=== PATIENT | male | born 1960 | race Caucasian/White ===

== ENCOUNTER 2020-03-21 02:15 | Emergency (ER) | payer BC, OTHER ==
[2020-03-21] MEDS ORDERED: Aspirin 81 MG Tab.Chew PO ONE (02:39)
--- NOTE | 2020-03-21 02:41 | EDM.PDOC ---
ED HPI GENERAL MEDICAL PROBLEM - General Stated Complaint: CHEST PAIN Time Seen by Provider: 03/21/20 02:20 Source of Information: Reports: Patient History Limitations: Reports: No Limitations - History of Present Illness INITIAL COMMENTS - FREE TEXT/NARRATIVE: Patient presented to the ED because of chest pain over the sternal area,06/09, with associated dyspnea and the pain is more of pleuritic type-worse with brathing and movements. There is no associated N/V, no fever or chills. chest Pain Score (Numeric/FACES): 4 headache Pain Score (Numeric/FACES): 3 - Related Data Allergies Allergy/AdvReac Type Severity Reaction Status Date / Time No Known Allergies Allergy Verified 03/21/20 02:39 Home Meds: Home Meds Levothyroxine 200 mcg PO DAILY 03/21/20 [History] traZODone HCl [Trazodone HCl] 50 mg PO DAILY 03/21/20 [History] Past Medical History Psychiatric History: Reports: Other (See Below) (insomnia) Endocrine/Metabolic History: Reports: Hypothyroidism ED ROS GENERAL - Review of Systems Review Of Systems: See Below Constitutional: Reports: No Symptoms HEENT: Reports: No Symptoms Respiratory: Reports: No Symptoms Cardiovascular: Reports: Chest Pain Endocrine: Reports: No Symptoms GI/Abdominal: Reports: No Symptoms Musculoskeletal: Reports: No Symptoms Skin: Reports: No Symptoms Neurological: Reports: No Symptoms ED EXAM, GENERAL - Physical Exam Exam: See Below Exam Limited By: No Limitations General Appearance: Alert, No Apparent Distress Ears: Normal External Exam, Normal Canal Nose: Normal Inspection, Normal Mucosa Throat/Mouth: Normal Inspection, Normal Lips Head: Atraumatic, Normocephalic Neck: Normal Inspection, Supple Respiratory/Chest: No Respiratory Distress Cardiovascular: Normal Peripheral Pulses, Regular Rate, Rhythm GI/Abdominal: Normal Bowel Sounds, Soft, Non-Tender Extremities: Normal Inspection, Normal Range of Motion Neurological: Alert, Oriented, CN II-XII Intact, Normal Cognition Course - Vital Signs Text/Narrative:: labs/EKG was discussed with patient and verbalized full understanding EKG-NSR,non specfic T abd trop neg ASA 324 mg po x1 Last Recorded V/S: Last Vital Signs Temp 36.6 C 03/21/20 02:15 Pulse 67 03/21/20 04:07 Resp 16 03/21/20 04:07 BP 109/64 03/21/20 04:07 Pulse Ox 98 03/21/20 04:07 - Orders/Labs/Meds Labs: Laboratory Tests 03/21/20 03/21/20 03/21/20 Range/Units 02:45 02:45 02:45 WBC 8.0 (4.5-12.0) X10-3/uL RBC 5.02 (4.30-5.75) x10(6)uL Hgb 15.0 (13.5-17.8) g/dL Hct 45.7 (30.0-51.3) % MCV 91.2 (80-96) fL MCH 29.8 (27.7-33.6) pg MCHC 32.7 (32.2-35.4) g/dL RDW 13.1 (11.5-15.5) % Plt Count 203 (125-369) X10(3)uL MPV 7.3 L (7.4-10.4) fL Neut % (Auto) 68.6 (46-82) % Lymph % (Auto) 18.9 (13-37) % Jennings % (Auto) 9.4 (4-12) % Eos % (Auto) 3 (1.0-5.0) % Baso % (Auto) 1 (0-2) % Neut # (Auto) 5.5 (1.6-8.3) # Lymph # (Auto) 1.5 (0.6-5.0) # Jennings # (Auto) 0.7 (0.0-1.3) # Eos # (Auto) 0.2 (0.0-0.8) # Baso # (Auto) 0.0 (0.0-0.2) # PT 10.6 (9.0-11.1) sec INR 0.98 L (1.00-1.24) APTT 25.2 (24.4-33.2) SECONDS Sodium 142 (135-145) mmol/L Potassium 3.6 (3.5-5.3) mmol/L Chloride 104 (100-110) mmol/L Carbon Dioxide 28 (21-32) mmol/L BUN 22 H (7-18) mg/dL Creatinine 1.2 (0.70-1.30) mg/dL Est Cr Clr Drug Dosing TNP Estimated GFR (MDRD) > 60 (>60) BUN/Creatinine Ratio 18.3 (9-20) Glucose 104 (80-116) mg/dL Calcium 8.7 (8.6-10.2) mg/dL Total Bilirubin 0.5 (0.1-1.3) mg/dL AST 15 (5-25) IU/L ALT 20 (12-36) U/L Alkaline Phosphatase 86 (56-112) IU/L Troponin I (4.0-60.3) pg/mL NT-Pro-B Natriuret Pep (<=125) pg/mL Total Protein 7.1 (6.0-8.0) g/dL Albumin 3.6 (3.5-5.2) g/dL Globulin 3.5 g/dL Albumin/Globulin Ratio 1.0 04//20 Range/Units 02:45 WBC (4.5-12.0) X10-3/uL RBC (4.30-5.75) x10(6)uL Hgb (13.5-17.8) g/dL Hct (30.0-51.3) % MCV (80-96) fL MCH (27.7-33.6) pg MCHC (32.2-35.4) g/dL RDW (11.5-15.5) % Plt Count (125-369) X10(3)uL MPV (7.4-10.4) fL Neut % (Auto) (46-82) % Lymph % (Auto) (13-37) % Jennings % (Auto) (4-12) % Eos % (Auto) (1.0-5.0) % Baso % (Auto) (0-2) % Neut # (Auto) (1.6-8.3) # Lymph # (Auto) (0.6-5.0) # Jennings # (Auto) (0.0-1.3) # Eos # (Auto) (0.0-0.8) # Baso # (Auto) (0.0-0.2) # PT (9.0-11.1) sec INR (1.00-1.24) APTT (24.4-33.2) SECONDS Sodium (135-145) mmol/L Potassium (3.5-5.3) mmol/L Chloride (100-110) mmol/L Carbon Dioxide (21-32) mmol/L BUN (7-18) mg/dL Creatinine (0.70-1.30) mg/dL Est Cr Clr Drug Dosing Estimated GFR (MDRD) (>60) BUN/Creatinine Ratio (9-20) Glucose (80-116) mg/dL Calcium (8.6-10.2) mg/dL Total Bilirubin (0.1-1.3) mg/dL AST (5-25) IU/L ALT (12-36) U/L Alkaline Phosphatase (56-112) IU/L Troponin I 11.2 (4.0-60.3) pg/mL NT-Pro-B Natriuret Pep 45 (<=125) pg/mL Total Protein (6.0-8.0) g/dL Albumin (3.5-5.2) g/dL Globulin g/dL Albumin/Globulin Ratio Meds: Medications Discontinued Medications Generic Name Dose Route Start Last Admin Trade Name Freq PRN Reason Stop Dose Admin Aspirin 324 mg 03/21/20 02:39 03/21/20 02:40 Aspirin PO 03/21/20 02:40 324 mg ONETIME ONE Administration Ketorolac Tromethamine 30 mg 03/21/20 02:49 03/21/20 02:59 Toradol IVPUSH 03/21/20 02:50 30 mg ONETIME ONE Administration Ketorolac Tromethamine Confirm 03/21/20 02:52 03/21/20 02:59 Toradol Administered 03/21/20 02:53 Not Given Dose 30 mg .ROUTE .STK-MED ONE Nitroglycerin 0.4 mg 03/21/20 02:39 03/21/20 02:49 Nitrostat SL 0.4 mg Q5M PRN Administration Chest Pain Departure - Departure Time of Disposition: 04:25 Disposition: Home, Self-Care 01 Condition: Good Clinical Impression: Atypical chest pain Instructions: Chest Wall Pain, [id number] Referrals: Cristobal Banerjee MD [Primary Care Provider] - Forms: ED Department Discharge Additional Instructions: Please read discharge instructions on atypical chest pain/chest wall pain take aleve(2 tablets) and tylenol 1000 every 12 hours as needed for pain follow up with your doctor if your pain keeps recurring so you can have a stress test Sepsis Event Note - Focused Exam Date Exam was Performed: 03/23/20 Time Exam was Performed: 10:51
[2020-03-21] MEDS: Nitroglycerin 0.4 MG Tab.SL SL PRN ×2 (02:44→02:49)
[2020-03-21] MEDS ORDERED: Ketorolac 30 MG/ML SDV IVPUSH ONE (02:49)
[2020-03-21] MEDS ORDERED: Ketorolac 30 MG/ML SDV ONE (02:52)
== END 2020-03-21 04:40 | disposition home or self-care (01) ==
LOC: FB.ED 02:15
DX: R07.89 Other chest pain (principal); E03.9 Hypothyroidism, unspecified; Z79.899 Other long term (current) drug therapy
CPT/HCPCS: 36415; 80053; 83880; 84484; 85025; 85610; 85730; 93005; 96374; 99285-25; A9270-GY; J1885